=== PATIENT | female | born 1955 | race Caucasian/White ===

== ENCOUNTER → 2019-09-14 | Outpatient (CLI) | payer OTHER, MEDICARE | LOC: M.RAD 10:55 | DX: Z12.31 Encounter for screening mammogram for malignant neoplasm of breast (principal) ==

== ENCOUNTER → 2019-09-20 | Outpatient (CLI) | payer OTHER, MEDICARE | LOC: M.RAD 09:40 | DX: R92.1 Mammographic calcification found on diagnostic imaging of breast (principal) ==

== ENCOUNTER → 2020-07-31 | Outpatient (CLI) | payer OTHER, MEDICARE | LOC: M.RAD 13:48 | PROVIDERS: ATTEND Family Medicine | DX: N63.20 Unspecified lump in the left breast, unspecified quadrant (principal) ==

== ENCOUNTER → 2020-08-19 | Outpatient (CLI) | payer OTHER, MEDICARE ==
--- NOTE | 2020-08-26 17:06 | PATH ---
[address] [address] PATHOLOGY RPT PROCEDURE Name: RADHA GLASS Room: [facility]#: [id number] Admission: 08/19/20 Date of : 53 Discharge: Report #: [id number] Path Case #: [id number] [facility] Accession Number: [id number] . 01 Material submitted: . breast - LEFT BREAST, 2:00, 4CM FROM NIPPLE. Modifiers: left, 2:00 . 01 Clinical history: . LEFT BREAST 1.40 X 1.23 X 1.24 CM . 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 - FOCAL DUCTAL CARCINOMA IN SITU (DCIS), NUCLEAR GRADE III, SOLID TYPE. - SEE COMMENT. . . SURGICAL PATHOLOGY CANCER CASE SUMMARY Protocol posting date: November 2019 . INVASIVE CARCINOMA OF THE BREAST: Biopsy Procedure ___ Needle biopsy Specimen Laterality ___ Left Tumor Site ___ Clock position: 2 o'clock ___ Distance from nipple: 4 cm Tumor Size ___ Greatest dimension of largest invasive focus >1 mm: 13 mm Histologic Type ___ Invasive carcinoma of no special type (ductal) Histologic Grade ([place] Histologic Score) Glandular (Acinar)/Tubular Differentiation ___ Score 3 (<10% of tumor area forming glandular/tubular structures) Nuclear Pleomorphism ___ Score 3 (vesicular nuclei, often with prominent nucleoli, exhibiting marked variation in size and shape, occasionally with very large and bizarre forms) Mitotic Rate ___ Score 3 Overall Grade ___ Grade 3 (scores of 8 or 9) Ductal Carcinoma In Situ (DCIS) ___ Present Architectural Patterns ___ [place] [address] PATHOLOGY RPT PROCEDURE Name: RADHA GLASS Room: [facility] Travis#: [id number] Admission: 08/19/20 Date of : 53 Discharge: Report #: [id number] Path Case #: [id number] Nuclear Grade ___ Grade III (high) Necrosis ___ Present, focal (small foci or single cell necrosis) Lymphovascular Invasion ___ Not identified Microcalcifications ___ Present in invasive carcinoma ___ Present in non-neoplastic tissue Ancillary Studies Biomarker Studies ___ Pending (JOSE/db; 08/20/2020) LBQ 08/20/2020 1217 Local . 02 Comment: Approximately 85% of the submitted tissues are involved by invasive carcinoma. Breast tumor profile studies are pending on A1 and will be the subject of an addendum report. Reviewed with Dr. Charanjit Rai who agrees with the diagnosis. Noris Zhang ([facility] Breast Navigator) notified at approximately 1240 on 08/20/2020. (JOSE/db; 08/20/2020) . 02 Addendum: . Special studies report received from [facility], [address] [place] [address], [address], [place], [address], on case [id number], labeled with their number [id number], dated 08/26/2020. . Breast/Prognostic Marker Analysis . Specimen Site: Left Breast, 2:00, 4cm From Nipple, Biopsy, Breast Cancer Specimen ID #: [id number] . ER (Estrogen Receptor) Absent/Negative Percent: 0.00 Analysis: Manual Comments: Comment: Internal and external controls are appropriately positive. . MA (Progesterone Receptor) Absent/Negative Percent: 0.00 Analysis: Manual Comments: Comment: Internal and external controls are appropriately [place] [address] PATHOLOGY RPT PROCEDURE Name: RADHA GLASS Room: [facility]#: [id number] Admission: 08/19/20 Date of : 53 Discharge: Report #: [id number] Path Case #: [id number] Not Over-Expressed Score: 1+ Analysis: Manual . Ki-67 High Proliferation Percent: 80.00% Analysis: Manual . Time to Fixation (Cold Ischemic Time): 9 minutes Duration of Fixation: 13 Hours and 52 Minutes Type of Fixative: 10% Neutral Buffered Formalin . Comments: ER/PgR testing at [facility]. is performed in compliance with the ASCO/CAP Clinical Practice Guidelines. If the result for ER is less than 1% it is reported as Negative; if the ER result is 1-10% it is reported as Low Positive; if the ER result is greater than 10% it is reported as Positive. If the result for PgR is less than 1% it is reported as Negative; if the PgR result is equal to or greater than 1%, it is reported as Positive. . REFERENCE: Marleny OLIVERA, Heriberto MUNOZ, Ingrid M, et al. Estrogen and progesterone receptor testing in breast cancer. ASCO/CAP guideline update. Arch Pathol Lab Med. 2020; 144:545-563. . Whole slide image capture is performed using [employer] ([employer]) platform. Image analysis, if ordered, is performed using [employer] software. . at [facility]. Sana Torres D.O. Surgical Pathologist . . Methodology The HER2 Receptor protein expression is analyzed using the [place] HER2 rabbit monoclonal antibody (clone [id number]). This assay is used for diagnostic determination of the HER2 protein over-expression in paraffin embedded, formalin fixed breast cancer tissue on the [employer] Benchmark. The specimen is processed using a secondary antibody-HRP conjugate detection system. The membrane staining of the tumor is determined either by manual score or image analysis. This antibody is intended for in vitro diagnostic use. The score is reported as 0, 1+, 2+, or 3+. This test is used for clinical purposes. . A rabbit monoclonal antibody (clone SP1) that recognized the Estrogen Receptor is used to perform [place] [address] PATHOLOGY RPT PROCEDURE Name: RADHA GLASS Room: [facility]#: [id number] Admission: 08/19/20 Date of : 53 Discharge: Report #: [id number] Path Case #: [id number] (formalin) paraffin embedded tissue on the [place] Benchmark. The specimen is processed using a secondary antibody-HRP conjugate detection system. The percentage of stained tumor nuclei is determined either manually or by image analysis. This test is intended for in vitro diagnostic use. This test is used for clinical purposes. . A rabbit monoclonal antibody (clone 1E2) that recognized the Progesterone Receptor is used to perform immunohistochemistry on routinely fixed (formalin) paraffin embedded tissue on the [place] Benchmark. The specimen is processed using a secondary antibody-HRP conjugate detection system. The percentage of stained tumor nuclei is determined either manually or by image analysis. This test is intended for in vitro diagnostic use. This test is used for clinical purposes. . A rabbit monoclonal antibody (clone 30-9) that recognized Ki67 is used to perform immunohistochemistry on routinely fixed (formalin) paraffin embedded tissue on the [place] Benchmark. The specimen is processed using a secondary antibody-HRP conjugate detection system. The percentage of stained tumor nuclei is determined either manually or by image analysis. This test is intended for in vitro diagnostic use. This test is used for clinical purposes. . Intended Use: This antibody is intended for in vitro diagnostic (IVD) use. HER2 (4B5) is a rabbit monoclonal antibody intended for the semi-quantitative detection of HER2 antigen in sections of formalin-fixed, paraffin embedded normal and neoplastic tissue. . This antibody is intended for in vitro diagnostic (IVD) use. Estrogen Receptor (ER) (SP1) is a rabbit monoclonal antibody (IgG) that is intended for the qualitative detection of estrogen receptor (ER) antigen in sections of formalin-fixed, paraffin-embedded tissue. ER is a rabbit monoclonal antibody that recognizes human estrogen receptor alpha. . This antibody is intended for in vitro diagnostic (IVD) use. Progesterone Receptor (MA) (1E2) is a rabbit monoclonal antibody (IgG) that is intended for the qualitative detection of progesterone receptor (MA) antigen in sections of formalin fixed, paraffin embedded tissue. MA is a rabbit monoclonal antibody that recognizes the A and B forms of the human progesterone receptor. . This antibody is intended for in vitro diagnostic (IVD) use. Ki-67 (30-9) is a rabbit monoclonal antibody (IgG) directed against C-terminal portion of Ki-67 antigen. Staining for Ki-67 can be used to aid in assessing the proliferative activity of normal and neoplastic tissue. Ki-67 is a nuclear protein expressed in proliferating cells. During the cell cycle, the Ki-67 antigen is present in the G1, S, G2 and M phase but is absent in the G0 (quiescent [place]). [place] [address] PATHOLOGY RPT PROCEDURE Name: RADHA GLASS Room: [facility] OUSMANE Robles#: [id number] Admission: 08/19/20 Date of : 53 Discharge: Report #: [id number] Path Case #: [id number] . Disclaimer: This Test was performed by [facility]. at [address], [address]. . [facility] is a business unit of [facility]. a wholly-owned subsidiary of [employer]. . This assay has not been validated on decalcified tissues. Results should be interpreted with caution if this specimen was decalcified given the likelihood of false negativity on decalcified specimens. . Any image(s) that accompany this report is/are a public health representative image(s) only and should not be used to render a diagnosis. . This interpretation is contingent on the specimen and the clinical information received. . For any special tests/stains performed, known positive cells or tissues are tested with each marker and examined to ensure positivity. Positive and negative internal controls, if present, react appropriately. . This analysis is an adjunct to the evaluation of the referring physician and does not represent a final diagnosis. . The immunohistochemistry tests performed at [facility]. were validated on tissue fixed in 10% neutral buffered formalin. The performance characteristics of the tests performed on tissue processed in other fixatives is not known. . HER2 testing at [facility] is performed in compliance with the 2018 updated ASCO/CAP Clinical Practice Guideline Focused Update. If the result is EQUIVOCAL (2+), it must be confirmed by an alternative assay such as FISH or Dual DARIAN. REF: Dena MARTINO, JAZMÍN Louis et al: Human Epidermal Growth Factor Receptor 2 Testing in Breast Cancer: ASCO/CAP Clinical Practice Guideline Focused Update. J Clin Oncol 36:1800-6499, 2018. . HER2 and ER/MA ASCO/CAP guidelines require fixation in neutral buffered formalin for a minimum of 6 and a maximum of 72 hours. Fixation times less than 6 hours may not adequately preserve cell proteins. Fixation times longer than 72 hours may cause excess cross-linking of proteins reducing the antigen available for staining. Either scenario can cause reduced staining; hence false negative results are possible and should be considered for these situations if the HER2 IHC score is less than 3+ or ER or MA is negative (no staining or <1% positive). It is recommended that specimens fixed longer than 72 hours with HER2 IHC scores less than 3+ be confirmed by HER2 FISH or Dual DARIAN. The time from biopsy/excision to [address] [place] [address] PATHOLOGY RPT PROCEDURE Name: RADHA GLASS Room: [facility]#: [id number] Admission: 08/19/20 Date of : 53 Discharge: Report #: [id number] Path Case #: [id number] fixation in formalin (cold ischemic time) must be less than 1 hour. Time to fixation (cold ischemic time) greater than 1 hour should be interpreted with caution. HER2 testing, mainly HER2 by FISH, is particularly vulnerable since excessive cold ischemic time results in preferential loss of HER2 probe signals that may lead to false negative results. . SCORE STAINING PATTERN IN TUMOR CELLS INTERPRETATION RESULTS 0 No staining observed or incomplete, faint membrane staining in less than or equal to 10% of tumor cells. Negative 1+ Incomplete, faint membrane staining in greater than 10% of tumor cells. Negative 2+ Weak to moderate complete membrane staining observed in greater than 10% of tumor cells. Equivocal* *Must be confirmed by alternative assay (IHC/FISH/Dual DARIAN) 3+ Intense, complete membrane staining in greater than 10% of tumor cells. Positive . A complete copy of the report is on file. . Professional and Technical services performed by [facility]. at [address] [place] [address]. . (JOSE:michaela 08/26/2020) . QLM/08/26/2020 Addendum Electronically Signed by Stanford Hnutley MD, Pathologist . 02 Electronically signed: . Stanford Huntley MD, Pathologist NPI- [id number] . 01 Gross description: . The specimen is received in formalin, labeled "Radha Glass, left breast 2:00 4 cm from nipple". Received are multiple needle cores of fibrofatty tissue measuring 2.7 x 2.5 x 0.5 cm in aggregate dimensions. The specimen is submitted entirely in cassettes A1 through A3. The cold ischemic time is 9 minutes. The total formalin fixation time is 13 hours and 52 minutes. (CAA; 08/19/2020) QAC/QAC 08/19/2020 1733 Local . 02 Pathologist provided ICD-10: [place] [address] PATHOLOGY RPT PROCEDURE Name: RADHA GLASS Room: [facility]#: [id number] Admission: 08/19/20 Date of : 53 Discharge: Report #: [id number] Path Case #: [id number] C50.912, D05.12 . 02 CPT . 779717 Specimen Comment: A courtesy copy of this report has been sent to [phone] Specimen Comment: [phone], Specimen Comment: Report sent to ,DR ZHANG / DR ROWE Performed at: 01 [facility] [address], [place], [place] [id number] MD Paul Guido MD Phone: [phone] Performed at: [address] [place] [address], [place], [place] [id number] MD Stanford Huntley MD Phone: [phone]
== END | disposition home or self-care (01) ==
LOC: M.ULTRA 07:37
PROVIDERS: ATTEND Family Medicine
DX: C50.912 Malignant neoplasm of unspecified site of left female breast (principal); R92.1 Mammographic calcification found on diagnostic imaging of breast